=== PATIENT | male | born 1960 | race Caucasian/White ===

== ENCOUNTER → 2021-10-16 08:43 | Outpatient (CLI) | payer BC, OTHER, SELFPAY ==
--- NOTE | ~2021-10-16 | XR_ITS ---
EXAMINATION: XR wrist LT min 3V DATE: 10/16/2021 08:56 INDICATION: Left wrist pain TECHNIQUE: Posteroanterior, ulnar deviation, oblique, and lateral views of the left wrist were obtain ed. COMPARISON: None available FINDINGS: There is no fracture, dislocation, or subluxation. The bones, soft tissues, and joint space s are normal. IMPRESSION: 1. No acute osseous abnormality. Reviewed, dictated and finalized at location A. 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
== END ==
PROVIDERS: PCP Family Medicine; Visit Provider Physician Assistant
DX: M25.532 Pain in left wrist (principal)
CPT/HCPCS: 73110

== ENCOUNTER 2021-12-13 00:27 | Day surgery (SDC) | payer BC, OTHER, SELFPAY ==
[2021-12-02 12:59] VITALS: BMI 27.5
[2021-12-13 06:29] VITALS: BP 140/74; PULSE 63; RESP 16; TEMP 36; O2SAT 100
[2021-12-13] MEDS: LACTATED RINGERS 1,000 ML 150 ML IV CONT (06:35)
--- NOTE | 2021-12-13 06:48 | P.PNAN_ITS ---
Anes - Initial Pre Proc Eval Procedure: Operation Date: 12/13/21 07:30 Proposed Procedures p Screening Colonoscopy - Nitesh Ge MD Date/Time: 12/13/21 06:48 Surgeon: Nitesh Ge MD Pre Op Diagnosis: neoplasm screening Patient Data Age: 61 Gender: M Height: 1.83 m Weight: 90.4 kg Last Vital Signs Temp 36.0 C L 12/13/21 06:29 Pulse 63 12/13/21 06:29 Resp 16 12/13/21 06:29 BP 140/74 12/13/21 06:29 Pulse Ox 100 12/13/21 06:29 Allergies Allergy/AdvReac Type Severity Reaction Status Date / Time eggplant Allergy Dizziness Verified 12/13/21 06:28 Home Medications Medication Instructions Recorded Confirmed Type No Home Medications 12/02/21 12/13/21 History Patient hx anesthesia problems: none Family hx anesthesia problems: none Results Review: All pre-operative results and documents have been reviewed as part of the pre-operative evaluation. [facility] Family History Family History Sibling Diabetes mellitus Hypertension Father Hypertension Cerebrovascular accident Carcinoma of colon Social History Social History (Updated 10/14/21 @ 14:21 by Maria Isabel Rich CMA) Smoking status: Former smoker Tobacco type: cigarettes Alcohol intake: never Substance use type: does not use Living arrangements: with family Spiritual care concerns: No Anes - Eval Final PreProcedure Day of Procedure 12/13/21 06:48 Patient weight: overweight Heart: regular rate and rhythm Lungs: clear to auscultation and normal air movement Airway: Mallampati scale class II Neurological: alert and oriented Last oral intake: >/= 8 hours ASA classification: II Emergent: no Anesthetic plan: proceed Anesthesia type and monitoring: general GIVS and standard monitoring Results Review: All pre-operative results and documents have been reviewed as part of the pre-operative evaluation. Informed Consent: The patient's anesthetic plan and its attendant risks and benefits were discussed with the patient/family/POA. Questions were solicited and answers provided to the satisfaction of the patient/family/POA.
--- NOTE | 2021-12-13 07:21 | P.CONGI_ITS ---
Assessment and Plan Assessment and plan (1) Family history of colon cancer in father: Code(s): Z80.0 - Family history of malignant neoplasm of digestive organs Status: Acute Assessment and Plan: patient's father had colon cancer his brother has had colon polyps. Plan is for surveillance colonoscopy now and at 5 year intervals in the future. GI Consult Note Consult date/time: 12/13/21 07:21 HPI: Partha Woods is a 61 year old male Presents for screening colonoscopy. Patient reports that his current weight appetite and bowel movements are normal. He denies abdominal pain. He has had no bleeding. Family history is significant that his brother did have colon polyps. Patient presents today for neoplasia screening. 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) Smoking status: Former smoker Tobacco type: cigarettes Alcohol intake: never Substance use type: does not use Living arrangements: with family Spiritual care concerns: No Meds Home Medications and Allergies Home Medications Medication Instructions Recorded Confirmed Type No Home Medications 12/02/21 12/13/21 History Allergies Allergy/AdvReac Type Severity Reaction Status Date / Time eggplant Allergy Dizziness Verified 12/13/21 06:28 Vital Signs Vital Signs - 24 hr 12/13/21 06:29 Temperature 96.8 F L Pulse Rate 63 Respiratory Rate 16 Blood Pressure 140/74 Pulse Oximetry 100 Exam Narrative: Physical exam reveals patient to be alert. Vital signs stable. HEENT exam is unremarkable. Patient is anicteric. Lungs are clear to auscultation and percussion. Heart is without murmur or extra sounds. Abdominal exam reveals bowel sounds are present soft nontender with no hepatosplenomegaly. Digital external rectal exam is normal.
[2021-12-13 07:46] VITALS: BP 109/69; PULSE 65; RESP 15; O2SAT 98
[2021-12-13 07:56] VITALS: BP 118/81; PULSE 62; RESP 24; O2SAT 98
[2021-12-13 08:06] VITALS: BP 146/83; PULSE 61; RESP 23; O2SAT 97
== END 2021-12-13 08:12 | disposition home or self-care (01) ==
PROVIDERS: PCP Family Medicine; Visit Provider Internal Medicine Gastroenterology
PROC: 0DJD8ZZ Inspection of Lower Intestinal Tract, Via Natural or Artificial Opening Endoscopic (ICD-10-PCS; CPT 45378; principal; 2021-12-13 07:30)
DX: Z12.11 Encounter for screening for malignant neoplasm of colon (principal); K64.8 Other hemorrhoids; K57.30 Diverticulosis of large intestine without perforation or abscess without bleeding; Z83.71 Family history of colonic polyps; Z80.0 Family history of malignant neoplasm of digestive organs; Z87.891 Personal history of nicotine dependence
CPT/HCPCS: 45378; J2704; J7120

== ENCOUNTER 2022-01-26 11:01 | Emergency (ER) | payer BC, OTHER, SELFPAY ==
[2022-01-26 11:12] VITALS: BP 139/70; PULSE 77; RESP 18; TEMP 37.1; O2SAT 100
--- NOTE | 2022-01-26 11:28 | ED.URI ---
HPI - URI/Sore Throat General Chief Complaint: Upper Respiratory Infection Stated Complaint: nasal congestion,bilateral ear pain Time Seen by Provider: 01/26/22 11:29 Source: patient, RN notes reviewed and old records reviewed Mode of arrival: ambulatory Limitations: no limitations History of Present Illness HPI Narrative: 61-year-old male who presents to [facility] with complaints of sinus congestion and drainage bilateral ear pain for the past 4 days with sinus pressure and frontal headache. Patient states that symptoms have increased in the past day with left ear pain worsening and sinus congestion. Patient reports that he has been taking Mucinex and also Tylenol and Ibuprofen with no improvement in his symptoms. Patient denies any acute cough or any shortness of breath.Patient states that he has had Covid and flu vaccinations, took home Covid test today which negative. MD elicited complaint: rhinorrhea, nasal congestion and other (Bilateral ear pain) Related Data Home Medications Medication Instructions Recorded Confirmed aspirin 81 mg PO DAILY 01/26/22 01/26/22 Allergies Allergy/AdvReac Type Severity Reaction Status Date / Time eggplant Allergy Dizziness Verified 01/26/22 11:18 Review of Systems Review of Systems: CONSTITUTIONAL: Has felt feverish with chills, or sweats. EYES: Denies visual changes, redness, or discharge. ENT: Positive rhinorrhea, congestion,no sore throat, bilateral ear otalgia. CARDIOVASCULAR: Denies chest pain, palpitations, or edema. RESPIRATORY: Denies cough or dyspnea. GASTROINTESTINAL: Denies abdominal pain, nausea, vomiting, or diarrhea. GENITOURINARY: Denies dysuria or hematuria. SKIN: Denies rash or itching. MUSCULOSKELETAL: Denies back pain, joint pain, or myalgia. NEUROLOGIC: Positive for frontal headache, no numbness, or weakness. PSYCHIATRIC: Denies anxiety or depression. All systems reviewed & are unremarkable except as noted in HPI and below PMFSH Past Medical History Medical History (Updated 01/26/22 @ 11:45 by Chiquita Browne NP) No active medical problems Surgical History Surgical History (Updated 01/26/22 @ 11:42 by Chiquita Browne NP) H/O Spinal surgery Family History Family History Sibling Diabetes mellitus Hypertension Father Hypertension Cerebrovascular accident Carcinoma of colon Social History Social History Smoking status: Former smoker Tobacco type: cigarettes Alcohol intake: never Substance use type: does not use Spiritual care concerns: No Comments At time of signature, agree with nursing past medical, surgical, social and family history. There is no relevant family history pertinent to the presenting complaint Exam Narrative: GENERAL: Well-appearing, well-nourished, and in no acute distress. HEAD: Normocephalic, atraumatic. EYES: PERRLA and EOMI. ENT: Nares red swollen with rhinorrhea no epistaxis. Mucous membranes moist.Right TM normal with good light reflex, left TM with dull light reflex, throat red with no lesions or exudates or tonsil swelling, some post nasal drainage present NECK: Supple.no lymphadenopathy CHEST: Clear to auscultation. No respiratory distress.no acute cough noted, SAO2 100% on room air HEART: Regular rate and rhythm. No murmur heard. Normal peripheral pulses. ABDOMEN: Soft, nontender, nondistended, normal active bowel sounds. EXTREMITIES: Normal range of motion. No edema. SKIN: Warm, dry, no rash. NEURO: No focal deficits. Alert and oriented x3. Course Course Level of Care: Express Care Visit Vital Signs Vital signs: Vital Signs Temperature 37.1 C 01/26/22 11:12 Pulse Rate 77 01/26/22 11:12 Respiratory Rate 18 01/26/22 11:12 Blood Pressure 139/70 01/26/22 11:12 Pulse Oximetry 100 01/26/22 11:12 Temperature 37.1 C 01/26/22 11:12 Pulse Rate 77 01/26/22 11:12 R
== END 2022-01-26 11:50 | disposition home or self-care (01) ==
PROVIDERS: Emergency Provider Registered Nurse; PCP Family Medicine
DX: J01.90 Acute sinusitis, unspecified (principal); Z87.891 Personal history of nicotine dependence
CPT/HCPCS: 99213; G0463

== ENCOUNTER 2024-12-02 10:52 | Outpatient (CLI) | payer BC, OTHER, SELFPAY ==
--- NOTE | ~2024-12-02 | US_ITS ---
EXAMINATION: US soft tissue groin RT DATE: 12/02/2024 11:30 INDICATION: Unilateral right inguinal are present with pain and bulging TECHNIQUE: Multiple grayscale and Doppler ultrasound images of the right groin were obtained. COMPARISON: None FINDINGS: With Valsalva there is extension of fat as well as peristalsing bowel into at least moderate-sized ri ght inguinal hernia which extends at least 8 cm in length and up to 2 cm in diameter. This appears to originate lateral to the hypogastric artery consistent with an indirect inguinal hernia. At the conc lusion of Valsalva this appears to reduce completely into the abdomen. Also noted with Valsalva is a likely second small fat-containing femoral hernia which extends inferolaterally along the common femo ral vasculature. IMPRESSION: 1. Transient moderate-sized indirect right inguinal hernia containing both fat and peristalsing bowel . 2. Likely second transient small fat-containing right femoral hernia. Reviewed, dictated and finalized at location B. G[employer] SAL[employer]OKER IMPRESSION: 1. Transient moderate-sized indirect right inguinal hernia containing both fat and peristalsing bowel. 2. Likely second transient small fat-containing right femoral hernia.
== END 2024-12-02 10:53 | disposition home or self-care (01) ==
LOC: MICIMG 10:52
PROVIDERS: PCP Student in an Organized Health Care Education/Training Program; Visit Provider Student in an Organized Health Care Education/Training Program
DX: K40.90 Unilateral inguinal hernia, without obstruction or gangrene, not specified as recurrent (principal)
CPT/HCPCS: 76882

== ENCOUNTER 2025-01-02 12:41 | Outpatient (CLI) | payer BC, OTHER, SELFPAY | END 2025-01-02 12:42 | disposition home or self-care (01) | PROVIDERS: Visit Provider Surgery | DX: K40.90 Unilateral inguinal hernia, without obstruction or gangrene, not specified as recurrent (principal) | CPT/HCPCS: 36415; 86850; 86900; 86901 ==

== ENCOUNTER 2025-01-08 00:24 | Day surgery (SDC) | payer BC, OTHER, SELFPAY ==
[2024-12-26 14:26] VITALS: BMI 27.1
--- NOTE | 2024-12-26 14:27 | PC.NURSE ---
Report to the Outpatient Waiting Room, entrance under the green pavilion located off [facility], at time _0600_ on date _[id number]_. Planned Procedure Time: _0730_.? Time changes happen often and if your time is changed the preop area will call you the afternoon before. - You and your visitor will be asked to self-screen and do not enter if you have any COVID symptoms. Please call surgeon if you need to reschedule. - A mask is optional within the hospital at this time. Patients may have clear liquids (water, carbonated beverages, clear teas, apple juice) until 3 hours prior to surgery with a maximum of 20 ounces. - No food from midnight until time of surgery and no smoking, or chewing tobacco (or any form of nicotine). No chewing gum, candy or mints. Take only the following medications with a SIP of water on the morning of surgery: __None____ DO NOT STOP ANY OF YOUR OTHER PRESCRIPTION MEDICATIONS PRIOR TO SURGERY EXCEPT THE FOLLOWING Hold all vitamins and supplements for 3 days per anesthesiologist. Medications to discontinue per physician ___ Date to take last wkap__[id number]___ Please no make-up, nail micronesian, hairspray, perfume, deodorant, or body powder the day of surgery.? No jewelry (including any body piercings) or valuables the day of surgery, leave them at home.? Please take a shower or bath the night before, or the morning of, surgery with an antibacterial soap.? Wear comfortable, loose fitting clothing.? - Jewelry must be removed prior to entering the operating room.? Rings and piercings that are not removed may be cut off. - The hospital will not accept responsibility for valuables.? - Please leave all valuables, including medications, at home the day of surgery. If you are going home after surgery, a licensed national dedicated truck driver must drive you home.? - NO public transportation without another adult if you receive anesthesia. - We recommend that an adult stay with you for 24 hours following discharge. - We also recommend that you do not drive, make important decision, drink alcoholic beverages, or take any drugs that were not prescribed by your health care provider for at least 24 hours after your discharge time. Follow any additional instructions given to you from your surgeon. Telephone instructions given to __Mando__and asked if any additional questions and then verbalized understanding. Patient advised to call surgeon office or pre surgery nurse liaison [phone] if any additional questions.
[2025-01-08] VITALS (8 sets, daily range): BP systolic 120–151; BP diastolic 68–81; PULSE 56–75; RESP 12–18; TEMP 36.3–36.4; O2SAT 100
--- NOTE | 2025-01-08 06:49 | P.PNAN_ITS ---
Anes - Initial Pre Proc Eval Procedure: Operation Date: 01/08/25 07:30 Proposed Procedures p Laparoscopic Right Inguinal Hernia Repair with Mesh, Davinci Assisted - Hermilo Portillo DO Date/Time: 01/08/25 06:49 Surgeon: Hermlio Portillo DO Pre Op Diagnosis: right inguinal hernia Patient Data Age: 64 Gender: M Height: 1.83 m Weight: 90.9 kg Allergies Allergy/AdvReac Type Severity Reaction Status Date / Time eggplant Allergy Dizziness Verified 01/08/25 06:05 Home Medications ?Medication ?Instructions ?Recorded ?Confirmed ?Type aspirin 81 mg tablet 81 mg PO DAILY 01/26/22 01/08/25 History cholecalciferol (vitamin D3) 25 25 mcg PO DAILY 11/26/24 01/08/25 History mcg (1,000 unit) capsule mecobalamin (vitamin B12) 1,000 1,000 mcg PO DAILY 11/26/24 01/08/25 History mcg chewable tablet rndadrqjyvsa-scq-ksxoz acid-vit 1 tablet PO DAILY 12/26/24 01/08/25 History K-lycop 400 mcg-20 mcg-370 mcg tablet (Men's 50 Plus Daily Formula) Patient hx anesthesia problems: none Family hx anesthesia problems: none Results Review: All pre-operative results and documents have been reviewed as part of the pre- operative evaluation. [facility] Past Medical History Medical History Arthritis Allergies No active medical problems Surgical History Surgical History H/O Spinal surgery Family History Family History Sibling Diabetes mellitus Hypertension Father Hypertension Cerebrovascular accident Carcinoma of colon Social History Social History Smoking packs per day: 1 Smoking cigarettes per day: 20.0 Years smoked: 5 Smoking pack-years: 5.00 Smoking status: Former smoker Tobacco type: cigarettes Smokeless tobacco user: chewing tobacco Smoking end date: 12/26/94 Additional smoking assessment comments: Currently chewing tobacco. Alcohol intake: never Substance use: never Substance use type: does not use Do You Feel Safe in your Home?: Yes Lack of Transportation: No Lack of Food: Never True Current Housing: I Have Housing Concerned About Future Housing: No Difficulty Paying Gas/Electric Bills: No Difficulty Paying for Meds: No Currently Unemployed: No Education: High School Diploma/GED Difficulty w/ Childcare or Family Care: No Living arrangements: with family Occupation/Education: occupation Gender identity (if verbalized by the patient): Male Spiritual care concerns: No Agree to blood products: Yes Anes - Eval Final PreProcedure Day of Procedure 01/08/25 06:49 Patient weight: overweight Heart: regular rate and rhythm Lungs: clear to auscultation Airway: Mallampati scale class II Neurological: alert and oriented Last oral intake: >/= 8 hours ASA classification: II Emergent: no Anesthetic plan: proceed Anesthesia type and monitoring: general ETT and standard monitoring Results Review: All pre-operative results and documents have been reviewed as part of the pre- operative evaluation. Informed Consent: The patient's anesthetic plan and its attendant risks and benefits were discussed with the patient/family/POA. Questions were solicited and answers provided to the satisfaction of the patient/family/POA.
[2025-01-08] MEDS: ACETAMINOPHEN 500 MG TABLET 1000 MG PO (07:07)
[2025-01-08] MEDS: KETOROLAC 15 MG/ML VIAL (*BKC) IV PUSH (07:09)
--- NOTE | 2025-01-08 07:14 | P.HP_ITS ---
H&P: HPI History of Present Illness Date/Time: 01/08/25 07:14 Chief Complaint: RIH Narrative: 64 yo man presents for RIH repair. He denies any changes since last seen in office. Review of Systems Review of Systems: All systems reviewed & are unremarkable except as noted in HPI and below Constitutional: Constitutional: Denies chills, Denies fever(s), Denies headache(s) and Denies weight loss Eyes: Eyes: Denies change in vision ENT: Denies dizziness, Denies headache(s), Denies neck mass and Denies throat swelling Cardiovascular: Cardiovascular: Denies chest pain, Denies lightheadedness and Denies dyspnea Respiratory: Respiratory: Denies cough, Denies dyspnea and Denies wheezing Gastrointestinal: Gastrointestinal: Denies abdominal pain, Denies change in bowel habits, Denies nausea and Denies vomiting Genitourinary: Genitourinary: Denies hematuria and Denies dysuria Musculoskeletal: Musculoskeletal: Reports as per HPI Integumentary/Breasts: Skin/Breast: Reports as per HPI Neurologic: Denies dizziness and Denies headache(s) Allergic/Immunologic: Allergic/Immunologic: Denies throat swelling and Denies wheezing PMFSH Past Medical History Medical History Arthritis Allergies No active medical problems Surgical History Surgical History H/O Spinal surgery Family History Family History Sibling Diabetes mellitus Hypertension Father Hypertension Cerebrovascular accident Carcinoma of colon Social History Social History Smoking packs per day: 1 Smoking cigarettes per day: 20.0 Years smoked: 5 Smoking pack-years: 5.00 Smoking status: Former smoker Tobacco type: cigarettes Smokeless tobacco user: chewing tobacco Smoking end date: 12/26/94 Additional smoking assessment comments: Currently chewing tobacco. Alcohol intake: never Substance use: never Substance use type: does not use Do You Feel Safe in your Home?: Yes Lack of Transportation: No Lack of Food: Never True Current Housing: I Have Housing Concerned About Future Housing: No Difficulty Paying Gas/Electric Bills: No Difficulty Paying for Meds: No Currently Unemployed: No Education: High School Diploma/GED Difficulty w/ Childcare or Family Care: No Living arrangements: with family Occupation/Education: occupation Gender identity (if verbalized by the patient): Male Spiritual care concerns: No Agree to blood products: Yes Meds Home Medications and Allergies Home Medications ?Medication ?Instructions ?Recorded ?Confirmed ?Type aspirin 81 mg tablet 81 mg PO DAILY 01/26/22 01/08/25 History cholecalciferol (vitamin D3) 25 25 mcg PO DAILY 11/26/24 01/08/25 History mcg (1,000 unit) capsule mecobalamin (vitamin B12) 1,000 1,000 mcg PO DAILY 11/26/24 01/08/25 History mcg chewable tablet pdwgbbqijbxu-ydj-gdeuv acid-vit 1 tablet PO DAILY 12/26/24 01/08/25 History K-lycop 400 mcg-20 mcg-370 mcg tablet (Men's 50 Plus Daily Formula) Allergies Allergy/AdvReac Type Severity Reaction Status Date / Time eggplant Allergy Dizziness Verified 01/08/25 06:05 Exam Const: General: no acute distress and alert Orientation/consciousness: p atient oriented x3 HENMT: Head: normocephalic and atraumatic Ears: hearing grossly normal bilaterally Face/Nose/Sinus: Normal nares present Mouth: Yes Normal oral and palatal mucosa present Eyes: Periorbital: periorbital findings normal Sclera: sclerae normal EOM: EOMs intact bilaterally Neck: Neck: normal visual inspection, no lymphadenopathy and trachea midline Chest: Chest palpation & inspection: normal inspection of the chest Resp: Effort & Inspection: normal respiratory effort Auscultation: clear to auscultation bilaterally Cardio: Jugular venous distension: no JVD Rate: regular rate Rhythm: regular rhythm Heart sounds: S1 normal heart sound present and S2 normal heart sound present Peripheral pulses: Peripheral pulses 2+ throughout GI: Inspection: normal to inspection GI Palp: Yes Soft to palpation, No Tenderness to palpation present (GI), No Guarding due to palpation present (GI) and No Rebound tenderness present Percussion: Yes normal to percussion Auscultation: normal bowel sounds : General: Yes no CVA tenderness Scrotum: inguinal hernia on the right Back/Spine/Pelvis: Back: no CVA tenderness Neuro: General: patient oriented x3, no focal motor deficits and CN's II-XI intact bilaterally Cognition (Neuro): normal cognition Speech: normal speech Motor exam (neuro): 5/5 motor strength present throughout Extrem: General: capillary refill normal and no clubbing, cyanosis or edema Assessment and Plan Assessment and plan (1) Right inguinal hernia: Code(s): K40.90 - Unilateral inguinal hernia, without obstruction or gangrene, not specified as recurrent Status: Acute Assessment and Plan: I have recommended laparoscopic right inguinal hernia repair with mesh, da Dionne assisted. I have discussed the procedure, risks, benefits, and alternatives with the patient. All questions answered. No changes since last seen in office.
--- NOTE | 2025-01-08 07:14 | WPDHPUPDATE1 ---
History and Physical Update Update Date/Time: 01/08/25 07:14 History and Physical has been reviewed, including an updated exam of the patient. There are NO changes in the patient's condition. Risks, benefits, and alternatives have been discussed and questions answered. Patient agrees to proceed with procedure.
[2025-01-08] MEDS: LACTATED RINGERS 1,000 ML 30 ML IV CONT ×3 (07:15→09:38)
[2025-01-08] MEDS: ceFAZolin 2 GM/D5W 50 ML 2 GM/50 ML BAG IVPB (07:30)
[2025-01-08] MEDS: BUPIVACAINE/EPINEPHRINE 0.5% 30 ML VIAL INFILTRATE (07:50)
--- NOTE | 2025-01-08 08:38 | P.OP_ITS ---
Procedure Note - Detailed Date of Procedure 01/08/25 Pre-op Diagnosis right inguinal hernia Post-op Diagnosis Same Procedure Performed Laparoscopic right inguinal hernia repair with mesh, da Dionne assisted Surgeon Hermilo Portillo, DO Anesthesia General and Local (0.5% bupivacaine with epinephrine) Indications This is a 64-year-old man who presented with a right groin bulge that he 1st noticed about 1 year ago. He would have some occasional discomfort but no significant pain with it. A right groin ultrasound was performed which showed evidence of a fat and bowel containing right inguinal hernia. Discussions were made with the patient about treatment options and decision was made to proceed with robotic assisted laparoscopic right inguinal hernia repair with mesh. Findings Robotic assisted laparoscopic right inguinal hernia repair with mesh was perf ormed. The patient was found to have a moderate-sized indirect right inguinal hernia with a fairly large hernia sac extending into the inguinal canal. There was no bowel contained within the hernia. A robotic transabdominal preperitoneal approach was utilized for repair. Once a wide enough preperitoneal pocket was created and the hernia sac was reduced, I then placed a large right 3DMax mid mesh overlying the entire right myopectineal orifice. Description of Procedure Procedure as well as risks, benefits, and alternatives were discussed with the patient. Written consent was obtained and placed in chart prior to procedure. Patient was brought back to surgical suite. He was placed supine on operating table. Time-out was done to confirm patient and procedure. He was then intubated by Anesthesia Department. His abdomen was prepped and draped in sterile fashion using chlorhexidine prep. 0.5% bupivacaine with epinephrine was infiltrated at each location for incision. A 12 millimeter transverse incision was made just superior to the umbilicus using a 15 blade scalpel. Blunt dissection was carried out down to the linea alba. A vertical incision was made at the linea alba using a 15 blade scalpel. The peritoneum was then bluntly entered. A 12 millimeter trocar was inserted and carbon dioxide insufflation was used to create a pneumoperitoneum. A camera was inserted and the abdominal cavity was inspected. The patient was placed in slight Trendelenburg position. An 8 millimeter incision was made on the right lateral abdomen and an 8 millimeter trocar was inserted under direct visualization. Another 8 millimeter incision was made in the left lateral abdomen and an 8 millimeter trocar was inserted under direct visualization. The robotic arms were brought up to the patient's bedside and secured to the ports. The camera and instruments were inserted. I then moved over to the robotic console and took control of the camera and instruments. After careful inspection of the abdominal cavity, I began scoring the peritoneum along the right lower quadrant using scissors with electrocautery. The preperitoneal plane was entered and this was carefully dissected caudally along the inferior epigastric vessels. Careful dissection with scissors with electrocautery and blunt dissection was used to continue this dissection. I dissected far enough laterally to allow for mesh placement, and also dissected medially to identify the pubic arch and Andrews's ligament. The hernia sac was identified and carefully dissected posteriorly. The cord contents were also identified and the peritoneum was carefully dissected far enough posteriorly to allow for mesh placement. Once an adequate pocket was created, I then placed the mesh within the preperitoneal pocket and carefully unfolded it. The mesh was centered on the hernia defect with adequate overlap circumferentially. The inferior edge of the mesh was inspected to ensure that it was far enough away from the peritoneal edge. The mesh appeared in proper position overlying the entire myopectineal orifice. The mesh was secured using 3-0 Vicryl simple interrupted sutures in Andrews's ligament, the superior medial edge, and superior lateral edge of the mesh. The peritoneum was then closed over the mesh using a 3-0 V-lock running absorbable suture. The robotic instruments were removed. The robotic arms were disengaged from the ports and moved away from the bedside. The patient was flattened out in bed, the ports were removed under direct visualization, and the pneumoperitoneum was released. The fascia of the umbilical incision was approximated using an 0 Vicryl [id number] suture. The skin of the incisions was approximated using 4-0 Monocryl subcuticular suture, and Exofin glue was applied on top. The patient was awakened from anesthesia, extubated, and transferred to recovery. Implants Large right 3DMax mid mesh Estimated Blood Loss 5 Complications No immediate complications Condition Stable Disposition Same day
[2025-01-08] MEDS: oxyCODONE HCL (*CRX) 5 MG TAB IR PO (09:38)
== END 2025-01-08 10:46 | disposition home or self-care (01) ==
PROVIDERS: Visit Provider Surgery
PROC: 8E0Y4CZ Robotic Assisted Procedure of Lower Extremity, Percutaneous Endoscopic Approach (ICD-10-PCS; CPT 49650; principal; 2025-01-08 07:30)
DX: K40.90 Unilateral inguinal hernia, without obstruction or gangrene, not specified as recurrent (principal); F17.220 Nicotine dependence, chewing tobacco, uncomplicated
CPT/HCPCS: 49650; S2900; A9270; C1781; J0690; J1100; J1171; J1596; J1885; J2250; J2710; J7030; J7120